=== PATIENT | male | born 1995 | race Caucasian/White ===

== ENCOUNTER 2018-09-12 12:23 | Emergency (ER) | payer OTHER ==
[~2018-09-12] VITALS: Ht 182.9 cm; Wt 78.0 kg
[2018-09-12 12:34] VITALS: BP_SYST 142
== END 2018-09-12 13:39 | disposition home or self-care (01) ==
LOC: SED 12:23
DX: H60.92 Unspecified otitis externa, left ear (principal); R03.0 Elevated blood-pressure reading, without diagnosis of hypertension
CPT/HCPCS: 99283